=== PATIENT | male | born 1970 | race Caucasian/White ===

== ENCOUNTER 2017-06-08 13:31 | Outpatient (CLI) | payer BC, OTHER ==
[2017-06-08 20:36] LABS: ALBUMIN/GLOBULIN RATIO 1.7 (1.0-2.2); BILIRUBIN,TOTAL 0.6 mg/dL (0.2-1.0); BUN - BLOOD UREA NITROGEN 21 mg/dL (6-20); CALCIUM 9.5 mg/dL (8.5-10.3); CARBON DIOXIDE - CO2 27 mmol/L (21-32); CHLORIDE 103 mmol/L (101-111); CHOL/HDL RATIO 6.3 (<5.0); CHOLESTEROL 295 mg/dL; GFR - MDRD 80 (>89); GLUCOSE 87 mg/dL (70-100); HDL CHOLESTEROL 47 mg/dL; LDL/HDL RATIO 4.1 (<3.6); POTASSIUM 4.3 mmol/L (3.5-5.0); SODIUM 138 mmol/L (135-145); TOTAL PROTEIN 7.5 g/dL (6.7-8.2); TRIGLYCERIDES 274 mg/dL; VLDL CHOLESTEROL 55 mg/dL
== END 2017-06-08 13:32 | disposition home or self-care (01) ==
LOC: LAB.WCP 13:31
PROVIDERS: ATTEND Family Medicine
DX: E78.5 Hyperlipidemia, unspecified (principal); M72.2 Plantar fascial fibromatosis; G43.909 Migraine, unspecified, not intractable, without status migrainosus; Z12.5 Encounter for screening for malignant neoplasm of prostate
CPT/HCPCS: 36415; 80053; 80061; 84153; 84443

== ENCOUNTER 2019-05-26 08:00 | Outpatient (CLI) | payer BC, OTHER ==
[2019-05-26 12:13] LABS: BASOPHILS % (AUTO) 0.5 %; EOSINOPHILS # (AUTO) 0.5 10^3/uL (0.0-0.7); EOSINOPHILS % (AUTO) 9.1 %; HGB - HEMOGLOBIN 13.8 g/dL (14.0-18.0); LYMPHOCYTES % (AUTO) 36.1 %; MEAN CORPUSCULAR HEMOGLOBIN 29.3 pg (27.0-31.0); MEAN CORPUSCULAR HGB CONC 31.7 g/dL (32.0-36.0); MEAN CORPUSCULAR VOLUME 92.6 fL (80.0-94.0); MEAN PLATELET VOLUME 10.2 fL (7.4-11.4); MONOCYTES # (AUTO) 0.5 10^3/uL (0.0-1.0); MONOCYTES % (AUTO) 8.7 %; NEUTROPHILS # (AUTO) 2.5 10^3/uL (1.5-6.6); NEUTROPHILS % (AUTO) 45.4 %; PLT - PLATELET COUNT 211 10^3/uL (130-450); RED BLOOD COUNT 4.71 10^6/uL (4.70-6.10); RED CELL DISTRIBUTION WIDTH 13.3 % (12.0-15.0); WHITE BLOOD COUNT 5.5 x10^3/uL (4.8-10.8)
[2019-05-26 12:53] LABS: HB2 TOTAL 14.7 g/dL; HEMOGLOBIN A1C 0.55 g/dL; HEMOGLOBIN A1C % 5.6 % (4.6-6.2)
[2019-05-26 12:56] LABS: ALBUMIN 4.2 g/dL (3.2-5.5); ALBUMIN/GLOBULIN RATIO 1.2 (1.0-2.2); ALKALINE PHOSPHATASE 47 IU/L (42-121); ALT ALANINE AMINOTRANSFERASE 20 IU/L (10-60); AST ASPARTATE AMINOTRANSFERASE 18 IU/L (10-42); BILIRUBIN,TOTAL 0.8 mg/dL (0.2-1.0); BUN - BLOOD UREA NITROGEN 29 mg/dL (6-20); CALCIUM 9.4 mg/dL (8.5-10.3); CARBON DIOXIDE - CO2 24 mmol/L (21-32); CHLORIDE 105 mmol/L (101-111); CHOLESTEROL 258 mg/dL; CREATININE 0.9 mg/dL (0.6-1.2); GFR - MDRD 90 (>89); GLUCOSE 102 mg/dL (70-100); HDL CHOLESTEROL 37 mg/dL; LDL CHOLESTEROL,CALCULATED 183 mg/dL; LDL/HDL RATIO 4.9 (<3.6); SODIUM 138 mmol/L (135-145); TOTAL PROTEIN 7.6 g/dL (6.7-8.2); VLDL CHOLESTEROL 38 mg/dL
[2019-05-26 22:05] LABS: TRICHOMONAS VAGINALIS DNA NEGATIVE (NEGATIVE)
[2019-05-27 11:43] LABS: HEPATITIS C ANTIBODY NON-REACTIVE (NON-REACTIVE)
[2019-05-27 14:41] LABS: HIV AG/AB 4TH GEN NON-REACTIVE (NON-REACTIVE)
[2019-05-28 12:16] LABS: HSV 1 IGG TYPE SPECIFIC AB 16.7 index; HSV 2 IGG TYPE SPECIFIC AB 11.2 index
[2019-05-28 15:26] LABS: ANA SCREEN NEGATIVE (NEGATIVE)
== END 2019-05-26 23:59 | disposition home or self-care (01) ==
LOC: LAB.WCP 08:00
PROVIDERS: ATTEND Physician Assistant
DX: Z00.00 Encounter for general adult medical examination without abnormal findings (principal); E78.5 Hyperlipidemia, unspecified; M79.643 Pain in unspecified hand; Z11.3 Encounter for screening for infections with a predominantly sexual mode of transmission
CPT/HCPCS: 36415; 80053; 80061; 81599; 83036; 83721; 85025; 86038; 86695; 86696; 86803; 87389; 87491; 87591; 87661

== ENCOUNTER 2019-06-02 09:23 | Outpatient (CLI) | payer BC ==
--- NOTE | 2019-06-02 15:50 | XRAY Report ---
Reason: KNEE PX, RIGHT Procedure Date: 06/02/2019 Accession Number: [id number] / [id number] Procedure: XR - Knee 2 View RT CPT Code: FULL RESULT: EXAM: RIGHT KNEE RADIOGRAPHY EXAM DATE: 06/02/2019 09:36 AM. CLINICAL HISTORY: Knee pain, right. COMPARISON: None. TECHNIQUE: 2 views. FINDINGS: Bones: No acute fracture or dislocation. Joints: There are mild tricompartmental degenerative changes with marginal osteophytosis. There is a trace joint effusion. No subluxation. Soft Tissues: Normal. No soft tissue swelling. IMPRESSION: Mild degenerative changes and trace joint effusion. RADIA
== END 2019-06-02 09:24 | disposition home or self-care (01) ==
LOC: DI 09:23
PROVIDERS: ATTEND Physician Assistant
DX: M17.11 Unilateral primary osteoarthritis, right knee (principal); M25.461 Effusion, right knee

== ENCOUNTER 2022-03-08 14:12 | Outpatient (CLI) | payer BC ==
[2022-03-08 18:09] LABS: BASOPHILS # (AUTO) 0.1 10^3/uL (0.0-0.1); BASOPHILS % (AUTO) 0.7 %; EOSINOPHILS # (AUTO) 0.3 10^3/uL (0.0-0.7); HCT - HEMATOCRIT 43.8 % (42.0-52.0); HGB - HEMOGLOBIN 14.8 g/dL (14.0-18.0); LYMPHOCYTES # (AUTO) 2.8 10^3/uL (1.5-3.5); LYMPHOCYTES % (AUTO) 32.1 %; MEAN CORPUSCULAR HEMOGLOBIN 30.2 pg (27.0-31.0); MEAN CORPUSCULAR HGB CONC 33.8 g/dL (32.0-36.0); MEAN CORPUSCULAR VOLUME 89.4 fL (80.0-94.0); MEAN PLATELET VOLUME 10.2 fL (7.4-11.4); MONOCYTES # (AUTO) 0.6 10^3/uL (0.0-1.0); MONOCYTES % (AUTO) 7.3 %; NEUTROPHILS % (AUTO) 56.7 %; PLT - PLATELET COUNT 249 10^3/uL (130-450); WHITE BLOOD COUNT 8.8 x10^3/uL (4.8-10.8)
[2022-03-08 18:25] LABS: ALBUMIN 4.6 g/dL (3.2-5.5); ALBUMIN/GLOBULIN RATIO 1.4 (1.0-2.2); ALKALINE PHOSPHATASE 45 IU/L (42-121); ALT ALANINE AMINOTRANSFERASE 31 IU/L (10-60); AST ASPARTATE AMINOTRANSFERASE 23 IU/L (10-42); BUN - BLOOD UREA NITROGEN 21 mg/dL (6-20); CALCIUM 9.5 mg/dL (8.5-10.3); CARBON DIOXIDE - CO2 25 mmol/L (21-32); CHLORIDE 103 mmol/L (101-111); CHOL/HDL RATIO 6.3 (<5.0); CHOLESTEROL 308 mg/dL; CREATININE 1.1 mg/dL (0.6-1.2); GFR - MDRD 71 (>89); GLUCOSE 90 mg/dL (70-100); HDL CHOLESTEROL 49 mg/dL; LDL CHOLESTEROL,CALCULATED 213 mg/dL; LDL/HDL RATIO 4.3 (<3.6); POTASSIUM 4.1 mmol/L (3.5-5.0); SODIUM 138 mmol/L (135-145); TOTAL PROTEIN 7.9 g/dL (6.7-8.2); TRIGLYCERIDES 231 mg/dL; VLDL CHOLESTEROL 46 mg/dL
[2022-03-08 18:30] LABS: THYROID STIMULATING HORMONE 1.26 uIU/mL (0.34-5.60)
== END 2022-03-08 14:13 | disposition home or self-care (01) ==
LOC: LAB.N 14:12
PROVIDERS: ATTEND Family Medicine
DX: E78.5 Hyperlipidemia, unspecified (principal); Z51.81 Encounter for therapeutic drug level monitoring; Z12.5 Encounter for screening for malignant neoplasm of prostate; R53.83 Other fatigue; Z79.899 Other long term (current) drug therapy
CPT/HCPCS: 36415; 80053; 80061; 83721; 84153; 84443; 85025

== ENCOUNTER 2023-04-11 06:03 | Emergency (ER) | payer OTHER ==
[2023-04-11 06:14] VITALS: BP 138/96
--- NOTE | 2023-04-11 06:24 | ED Physician Documentation ---
PD HPI OPHTHO - Stated complaint Stated Complaint: L EYE INFECTION - Chief complaint Chief Complaint: Heent - History obtained from History obtained from: Patient - Additional information Additional information: HPI from patient. c/o steadily increasing pain, swelling, erythema left supraorbit, lateral aspect. Onset 2-3 days ago, no injury. Denies h/o similar. No visual changes. Denies fever. Denies h/o similar symptoms Review of Systems Constitutional: denies: Fever Eyes: reports: Reviewed and negative PD PAST MEDICAL HISTORY - Past Medical History Past Medical History: No - Past Surgical History Past Surgical History: No - Present Medications Home Medications: Ambulatory Orders Medication Instructions Recorded Confirmed Cefuroxime Axetil [Cefuroxime] 500 mg PO BID #20 tablet 04/11/23 - Allergies Allergies/Adverse Reactions: Allergies Allergy/AdvReac Type Severity Reaction Status Date / Time No Known Drug Allergies Allergy Verified 04/11/23 06:10 - Social History Does the pt smoke?: Yes Smoking Status: Current every day smoker Does the pt drink ETOH?: Yes ETOH Use: Beer Does the pt have substance abuse?: No - Immunizations Immunizations are current?: Yes - POLST Patient has POLST: No PD ED PE NORMAL - Vitals Vital signs reviewed: Yes - General General: Alert and oriented X 3, No acute distress, Well developed/nourished PD ED PE EXPANDED - HEENT HEENT Visual: 1 - swelling (tenderness, erythema, firm swelling with palpable margins s/o 1.5 cm x 1 cm lesion with surrounding flat erythema and upper eyelid edema) Results - Vitals Vitals: Oxygen O2 Source Room air Procedures - Abscess I&D (location) Face left Preparation: Chlorhexadine, Alcohol, Lidocaine 1% Incision: Needle aspiration, Other (three attempts to needle aspirate did not result in any pus return. The area involved is too small to necessitate incision (scalpel) I+D) Other: Pt tolerated well, Antibiotic prescribed PD Medical Decision Making - ED course Complexity details: considered differential, d/w patient ED course: three attempts to needle-drain the focal infection (left supralateral orbital area, over supraorbital bony ridge) did not result in pus return. At this time, benefits of I+D would likely outweigh risks (particularly scarring within the eyebrow), and thus recommended trial of abx with careful return precautions reviewed, and recommended seek reevaluation by PMD in 2-3 days if can be arranged. Departure - Departure Disposition: 01 Home, Self Care Clinical Impression: Periorbital cellulitis of left eye Condition: Good Instructions: ED Infec Skin Cellulitis Prescriptions: Cefuroxime Axetil [Cefuroxime] 500 mg PO BID #20 tablet Comments: A prescription for an antibiotic (cefuroxime) been electronically submitted to the [facility] pharmacy in [place]. You are given the first dose in the emergency department, so the next dose that you need to take is going to be this evening. Discharge Date/Time: 04/11/23 07:36
[2023-04-11] MEDS ORDERED: LIDOCAINE 1% 2 ML VIAL SUBQ STA (06:39)
== END 2023-04-11 07:36 | disposition home or self-care (01) ==
LOC: ED 06:03
DX: L03.213 Periorbital cellulitis (principal); F17.200 Nicotine dependence, unspecified, uncomplicated
CPT/HCPCS: 10160; 99282; 99283; A9270